=== PATIENT | female | born 1935 | race Caucasian/White ===

== ENCOUNTER 2025-05-22 05:39 | Emergency (ER) | payer MEDICARE, OTHER ==
[2025-05-22 05:56] LABS: #Basophils 0.03 10x3/uL (0.0-0.2); #Eosinophils 0.54 10x3/uL (0.0-0.5); #Monocytes 0.60 10x3/uL (0.0-1.1); #Neutrophils 6.69 10x3/uL (1.5-8.4); %Basophils 0.3 % (0.0-2.0); %Eosinophils 5.5 % (0.0-6.0); %Lymphocytes 19.2 % (18.0-47.0); %Monocytes 6.1 % (0.0-10.0); %Neutrophils 68.6 % (40.0-75.0); Hematocrit 43.8 % (34.9-44.5); Hemoglobin 14.5 g/dL (12.0-15.5); Mean Corpuscular Hemoglobin 30.5 pg (27.0-33.0); Mean Corpuscular Volume 92.0 fL (81.6-98.3); Platelet Count 202 10x3/uL (150-450); Red Blood Cell (RBC) Count 4.76 10x6/uL (3.90-5.03); White Blood Cell (WBC) Count 9.76 10x3/uL (3.5-10.5)
[2025-05-22] MEDS ORDERED: Ondansetron PF 4 MG/2 ML Vial ONE (06:14)
[2025-05-22 06:16] LABS: Troponin I 0.011 ng/mL (< 0.028)
[2025-05-22 06:19] LABS: ALT (SGPT) 11 U/L (Less than 34); AST (SGOT) 18 U/L (11-34); Albumin 3.9 g/dL (3.1-4.5); Alkaline Phosphatase 72 U/L (40-110); Anion Gap 11 mmol/L (10-20); BUN (Urea Nitrogen) 20 mg/dL (9.8-20.1); Bilirubin, Total 0.9 mg/dL (0.3-1.2); Calc. Creatinine Clearance 0 mL/min (70-130); Calcium 10.8 mg/dL (7.8-10.44); Carbon Dioxide 25 mmol/L (23-31); Chloride 107 mmol/L (98-107); Globulin 3.1 g/dL (2.4-3.5); Glucose 115 mg/dL (83-110); Lipase 46 U/L (8-78); Potassium 4.4 mmol/L (3.5-5.1); Sodium 139 mmol/L (136-145)
[2025-05-22] MEDS ORDERED: Iopamidol 300 61% 100 ML VIAL FS ONE (09:29)
== END 2025-05-22 08:05 | disposition home or self-care (01) ==
LOC: CSHERS 05:39
DX: R19.7 Diarrhea, unspecified (principal); I10 Essential (primary) hypertension; Z79.899 Other long term (current) drug therapy; Z79.82 Long term (current) use of aspirin
CPT/HCPCS: 74177; 80053; 83605; 83690; 84484; 85025; J2405; Q9967; 96374